=== PATIENT | male | born 1990 | race African-American/Black ===

== ENCOUNTER 2017-03-15 21:53 | Emergency (ER) | payer OTHER ==
[~2017-03-15] VITALS: Ht 172.7 cm; Wt 112.9 kg
[2017-03-15 23:09] LABS: BASOPHIL % 0.5 % (0-2); PLATELET COUNT 240 x10^3mcL (130-400); RED CELL DISTRIBUTION WIDTH 14.3 % (11.5-14.5)
[2017-03-15 23:13] LABS: CALCIUM 8.7 mg/dL (8.5-10.1); CARBON DIOXIDE 28.8 mmol/L (21-32); CHLORIDE SERUM 104 mmol/L (98-107); CREATININE SERUM 1.1 mg/dL (0.7-1.3); GFR1 > 60 mL/min; GLUCOSE SERUM 90 mg/dL (74-106); POTASSIUM SERUM 3.8 mmol/L (3.5-5.1); SODIUM SERUM 140 mmol/L (136-145)
[2017-03-15 23:18] LABS: ALKALINE PHOSPHATASE 82 U/L (46-116); ALT/SGPT 38 U/L (16-63); AST/SGOT 17 U/L (15-37); BILIRUBIN TOTAL 0.4 mg/dL (0.20-1.00); TOTAL PROTEIN, SERUM 7.8 g/dL (6.4-8.2)
[2017-03-15 23:34] LABS: CK-MB 1.6 ng/mL (0-3.6)
[2017-03-15 23:58] VITALS: BP 145/93
== END 2017-03-15 23:58 | disposition home or self-care (01) ==
LOC: ED 21:53
PROVIDERS: Emergency Medicine
DX: I16.0 Hypertensive urgency (principal)

== ENCOUNTER 2017-05-16 10:36 | Emergency (ER) | payer OTHER ==
[~2017-05-16] VITALS: Ht 172.7 cm; Wt 109.8 kg
[2017-05-16 11:17] LABS: BASOPHIL % 0.7 % (0-2); PLATELET COUNT 188 x10^3mcL (130-400); RED CELL DISTRIBUTION WIDTH 14.2 % (11.5-14.5)
[2017-05-16 11:37] LABS: CALCIUM 9.2 mg/dL (8.5-10.1); CARBON DIOXIDE 27.1 mmol/L (21-32); CHLORIDE SERUM 106 mmol/L (98-107); CREATININE SERUM 1.1 mg/dL (0.7-1.3); GFR1 > 60 mL/min; GLUCOSE SERUM 87 mg/dL (74-106); POTASSIUM SERUM 3.8 mmol/L (3.5-5.1); SODIUM SERUM 139 mmol/L (136-145)
[2017-05-16 11:42] LABS: ALBUMIN 3.9 g/dL (3.4-5.0); ALKALINE PHOSPHATASE 81 U/L (46-116); ALT/SGPT 35 U/L (16-63); AST/SGOT 19 U/L (15-37); BILIRUBIN TOTAL 0.7 mg/dL (0.20-1.00); TOTAL PROTEIN, SERUM 7.5 g/dL (6.4-8.2)
[2017-05-16 14:11] VITALS: BP 154/79
== END 2017-05-16 14:24 | disposition home or self-care (01) ==
LOC: ED 10:36
PROVIDERS: Emergency Medicine
DX: R07.89 Other chest pain (principal); I10 Essential (primary) hypertension; F17.200 Nicotine dependence, unspecified, uncomplicated
CPT/HCPCS: 36415; J1885; Q0092

== ENCOUNTER 2017-06-13 17:54 | Emergency (ER) | payer OTHER ==
[2017-06-13 21:52] VITALS: BP 131/86
== END 2017-06-13 21:52 | disposition left against medical advice (07) ==
LOC: ED 17:54
DX: R07.89 Other chest pain (principal); I10 Essential (primary) hypertension
CPT/HCPCS: 83880; Q0092

== ENCOUNTER 2017-06-29 18:11 | Emergency (ER) | payer OTHER ==
[2017-06-29 22:02] VITALS: BP 130/78
== END 2017-06-29 22:02 | disposition home or self-care (01) ==
LOC: ED 18:11
DX: S62.102A Fracture of unspecified carpal bone, left wrist, initial encounter for closed fracture (principal); W19.XXXA Unspecified fall, initial encounter; Y93.89 Activity, other specified; Y92.89 Other specified places as the place of occurrence of the external cause; Y99.8 Other external cause status; I10 Essential (primary) hypertension
CPT/HCPCS: A4570

== ENCOUNTER 2017-12-17 21:01 | Emergency (ER) | payer OTHER ==
[~2017-12-17] VITALS: Ht 180.3 cm; Wt 109.8 kg
[2017-12-17 21:06] VITALS: Ht 180.3 cm; Wt 109.8 kg
[2017-12-17 23:00] VITALS: BP 156/80
== END 2017-12-17 23:00 | disposition home or self-care (01) ==
LOC: ED 21:01
DX: T59.891A Toxic effect of other specified gases, fumes and vapors, accidental (unintentional), initial encounter (principal); J18.9 Pneumonia, unspecified organism; I10 Essential (primary) hypertension; F17.210 Nicotine dependence, cigarettes, uncomplicated; Z71.6 Tobacco abuse counseling; Y92.098 Other place in other non-institutional residence as the place of occurrence of the external cause
CPT/HCPCS: 99406; J7620; Q0092

== ENCOUNTER 2018-06-16 04:16 | Emergency (ER) | payer OTHER ==
[~2018-06-16] VITALS: Ht 177.8 cm; Wt 102.5 kg
[2018-06-16 04:19] VITALS: Ht 177.8 cm; Wt 102.5 kg
[2018-06-16 05:08] LABS: BASOPHIL % 0.8 % (0-2); PLATELET COUNT 197 x10^3mcL (130-400); RED CELL DISTRIBUTION WIDTH 13.6 % (11.5-14.5)
[2018-06-16 05:13] LABS: CALCIUM 9.3 mg/dL (8.5-10.1); CARBON DIOXIDE 26.7 mmol/L (21-32); CHLORIDE SERUM 107 mmol/L (98-107); CREATININE SERUM 1.1 mg/dL (0.7-1.3); GFR1 > 60 mL/min; GLUCOSE SERUM 73 mg/dL (74-106); POTASSIUM SERUM 3.9 mmol/L (3.5-5.1); SODIUM SERUM 138 mmol/L (136-145)
[2018-06-16 06:11] VITALS: BP 159/75
== END 2018-06-16 06:11 | disposition home or self-care (01) ==
LOC: ED 04:16
PROVIDERS: Emergency Medicine
DX: R07.89 Other chest pain (principal); I10 Essential (primary) hypertension; F17.210 Nicotine dependence, cigarettes, uncomplicated
CPT/HCPCS: 36415; 87491; 87591; Q0092

== ENCOUNTER 2019-01-27 09:27 | Emergency (ER) | payer OTHER ==
[~2019-01-27] VITALS: Ht 175.3 cm; Wt 104.3 kg
[2019-01-27 09:34] VITALS: Ht 175.3 cm; Wt 104.3 kg
[2019-01-27 10:34] LABS: BASOPHIL % 0.4 % (0-2); PLATELET COUNT 188 x10^3mcL (130-400); RED CELL DISTRIBUTION WIDTH 13.4 % (11.5-14.5)
[2019-01-27 10:41] LABS: CALCIUM 8.8 mg/dL (8.5-10.1); CARBON DIOXIDE 26.4 mmol/L (21-32); CHLORIDE SERUM 106 mmol/L (98-107); GFR1 > 60 mL/min; GLUCOSE SERUM 92 mg/dL (74-106); POTASSIUM SERUM 4.3 mmol/L (3.5-5.1); SODIUM SERUM 139 mmol/L (136-145)
[2019-01-27 10:46] LABS: ALBUMIN 3.6 g/dL (3.4-5.0); ALKALINE PHOSPHATASE 74 U/L (46-116); ALT/SGPT 43 U/L (16-63); AST/SGOT 15 U/L (15-37); BILIRUBIN TOTAL 0.3 mg/dL (0.20-1.00); TOTAL PROTEIN, SERUM 7.3 g/dL (6.4-8.2)
[2019-01-27 12:00] VITALS: BP 127/72
== END 2019-01-27 12:00 | disposition home or self-care (01) ==
LOC: ED 09:27
PROVIDERS: Emergency Medicine
DX: R51 Headache (principal); I16.0 Hypertensive urgency; F17.210 Nicotine dependence, cigarettes, uncomplicated
CPT/HCPCS: J2270; J3490; Q0092

== ENCOUNTER 2019-08-14 09:43 | Emergency (ER) | payer OTHER ==
[~2019-08-14] VITALS: Ht 175.3 cm; Wt 124.3 kg
[2019-08-14 09:48] VITALS: Ht 175.3 cm; Wt 124.3 kg
[2019-08-14 12:05] VITALS: BP 145/84
== END 2019-08-14 12:05 | disposition home or self-care (01) ==
LOC: ED 09:43
DX: S93.402A Sprain of unspecified ligament of left ankle, initial encounter (principal); I10 Essential (primary) hypertension; F17.210 Nicotine dependence, cigarettes, uncomplicated; E66.9 Obesity, unspecified; Z68.41 Body mass index [BMI] 40.0-44.9, adult; X50.1XXA Overexertion from prolonged static or awkward postures, initial encounter; Y93.01 Activity, walking, marching and hiking; Y92.89 Other specified places as the place of occurrence of the external cause; Y99.8 Other external cause status
CPT/HCPCS: 99406

== ENCOUNTER 2019-08-19 18:07 | Emergency (ER) | payer OTHER ==
[~2019-08-19] VITALS: Ht 175.3 cm; Wt 125.6 kg
[2019-08-19 18:21] VITALS: Ht 175.3 cm; Wt 125.6 kg
[2019-08-19 19:00] VITALS: BP 151/72
== END 2019-08-19 19:00 | disposition home or self-care (01) ==
LOC: ED 18:07
DX: M25.572 Pain in left ankle and joints of left foot (principal); I10 Essential (primary) hypertension

== ENCOUNTER 2020-06-15 19:13 | Emergency (ER) | payer SELFPAY ==
[~2020-06-15] VITALS: Ht 175.3 cm; Wt 113.4 kg
[2020-06-15 19:16] VITALS: Ht 175.3 cm; Wt 113.4 kg
[2020-06-15 20:35] VITALS: BP 142/75
== END 2020-06-15 20:35 | disposition home or self-care (01) ==
LOC: ED 19:13
DX: U07.1 COVID-19 (principal); I10 Essential (primary) hypertension
CPT/HCPCS: U0003-CS

== ENCOUNTER 2020-07-02 20:45 | Emergency (ER) | payer SELFPAY ==
[~2020-07-02] VITALS: Ht 175.3 cm; Wt 117.9 kg
[2020-07-02 20:46] VITALS: BP 162/89; Ht 175.3 cm; Wt 117.9 kg
== END 2020-07-02 22:16 | disposition home or self-care (01) ==
LOC: ED 20:45
DX: U07.1 COVID-19 (principal); I10 Essential (primary) hypertension
CPT/HCPCS: U0003-CS

== ENCOUNTER 2020-07-22 14:50 | Emergency (ER) | payer SELFPAY ==
[~2020-07-22] VITALS: Ht 175.3 cm; Wt 117.9 kg
[2020-07-22 14:51] VITALS: BP 151/93; Ht 175.3 cm; Wt 117.9 kg
== END 2020-07-22 15:23 | disposition left against medical advice (07) ==
LOC: ED 14:50
DX: Z53.21 Procedure and treatment not carried out due to patient leaving prior to being seen by health care provider (principal)
CPT/HCPCS: U0003-CS